=== PATIENT | male | born 1990 | race Caucasian/White ===

== ENCOUNTER 2016-11-02 18:18 | Emergency (ER) | payer MEDICAID ==
[~2016-11-02] VITALS: Ht 172.7 cm; Wt 78.5 kg
[2016-11-02 18:47] VITALS: Ht 172.7 cm; Wt 78.5 kg
[2016-11-02] MEDS ORDERED: CYCL-319 PO (19:16)
[2016-11-02] MEDS ORDERED: IBUP-1542 PO (19:16)
--- NOTE | 2016-11-02 19:22 | ERD ---
ER Documentation Chief Complaint Date/Time DATE: 11/02/16 TIME: 19:17 Chief Complaint bACK PAIN X 7 MONTHS GETTING WORSE HPI Patient is 26-year-old male who presents the emergency department for back pain 7 months. Patient states his pain is getting worse. Patient denies any saddle anesthesia, urinary incontinence, stool incontinence, night pain, difficulty ambulating or loss consciousness. Patient denies any dysuria, hematuria, flank pain, fevers or chills. Patient states that he has been to numerous clinics in the past for his ongoing back pain. Patient denies receiving any x-ray imaging. Patient requesting x-ray imaging at this time. 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 Patient denies any falls or trauma. ROS All systems reviewed and are negative except as per history of present illness. Medications Home Meds Active Scripts Cyclobenzaprine Hcl* (Cyclobenzaprine Hcl*) 10 Mg Tablet, 10 MG PO TID, #15 TAB Prov:STANISLAV HINDS PA-C 11/02/16 Ibuprofen* (Motrin*) 600 Mg Tab, 600 MG PO Q6, #20 TAB Prov:STANISLAV HINDS PA-C 11/02/16 Allergies Allergies: Coded Allergies: No Known Allergy (Unverified , 11/02/16) PMhx/Soc History of Surgery: No Anesthesia Reaction: No Hx Neurological Disorder: No Hx Respiratory Disorders: No Hx Cardiac Disorders: No Hx Psychiatric Problems: No Hx Miscellaneous Medical Probl: Yes (CHRONIC BACK PAIN X 1 YR.) Hx Alcohol Use: No Hx Substance Use: No Hx Tobacco Use: No Smoking Status: Never smoker FmHx Family History: No diabetes Physical Exam Vitals Vital Signs Date Time Temp Pulse Resp B/P Pulse Ox O2 Delivery O2 Flow Rate FiO2 11/02/16 18:47 98.3 73 18 137/78 98 Physical Exam GENERAL: Well-developed, well-nourished male. Appears in no acute distress. Speaking in full sentences HEAD: Normocephalic, atraumatic. EYES: Pupils are equally reactive bilaterally. EOMs grossly intact. No conjunctival erythema. ENT: Moist mucous membranes. No uvula deviation. No kissing tonsils. NECK: Supple. No meningismus. Normal range of motion of the neck. No cervical midline spine tenderness noted. LUNG: Clear to auscultation bilaterally. No rhonchi, wheezing, rales or coarse breath sounds. HEART: Regular rate and rhythm. No murmurs, rubs or gallops. ABDOMEN: Soft, nontender, and nondistended. Positive bowel sounds in all four quadrants. No rebound tenderness, no guarding. (-) McBurney's point tenderness. No CVA tenderness. BACK: No thoracic or lumbar spine tenderness noted. Patient tender to palpation of bilateral lumbar and thoracic muscle regions. Negative straight leg raise bilaterally. EXTREMITIES: Equal pulses bilaterally. No peripheral clubbing, cyanosis or edema. No unilateral leg swelling. NEUROLOGIC: Alert and oriented. Moving all four extremities without any difficulty. Normal speech. Steady gait. SKIN: Normal color. Warm and dry. No rashes or lesions. Results 24 hrs Laboratory Tests Test 11/02/16 20:02 Bedside Urine pH (LAB) 7.0 Bedside Urine Protein (LAB) Negative Bedside Urine Glucose (UA) Negative Bedside Urine Ketones (LAB) Negative Bedside Urine Blood Negative Bedside Urine Nitrite (LAB) Negative Bedside Urine Leukocyte Esterase (L Negative Procedures/MDM ED COURSE: The patient was stable throughout ED course. I kept the patient and/or family informed of laboratory and diagnostic imaging results throughout the ED course. DIAGNOSTIC IMAGING: Read by radiologist. Patient: YISEL PRESLEY : 1990 Age: 26 Sex: M MR #: [id number] DOS: 11/02/161912 Ordering MD: STANISLAV HINDS PA-C Location: [facility] Room/Bed: PROCEDURE: XR Lumbar Spine. CLINICAL INDICATION: Back pain. TECHNIQUE: Complete lumbar spine study including AP, lateral, obliques and coned L5-S1 views was performed. COMPARISON: No similar studies are submitted for comparison. FINDINGS: Vertebral body stature and alignment maintained. There is no evidence of fracture or subluxation. No destructive osseous lesions are seen. IMPRESSION: No evidence of compression fracture. RPTAT: HIKT .Uzair March MD, Date Time Electronically viewed and signed by .Uzair March MD, on 11/02/2016 21:14 .T/ CC: STANISLAV HINDS PA-C DIAGNOSTIC IMAGING REPORT Patient: YISEL PRESLEY : 1990 Age: 26 Sex: M [id number] DOS: 11/02/16 1913 Ordering MD: STANISLAV HINDS PA-C Location: [facility] Room/Bed: PROCEDURE: XR thoracic Spine. CLINICAL INDICATION: Trauma. TECHNIQUE: AP and lateral views of the thoracic spine were performed. COMPARISON: No pertinent prior examinations were submitted for comparison. FINDINGS: There is minimal dextroscoliosis of the thoracic spine. Vertebral body stature and alignment are otherwise maintained. No acute fracture is seen. There are no definite destructive osseous lesions. IMPRESSION: No evidence of compression fracture. RPTAT: HIKT .Uzair March MD, MD Date Time Electronically viewed and signed by .Uzair March MD, MD on 11/02/2016 21:14 .T/ CC: STANISLAV HINDS PA-C MEDICAL DECISION MAKING: This is a 26-year-old male who presents with lower back pain 7 months. Patient states pain is getting worse. Patient denied any trauma or falls. Vital signs were reviewed. Patient was afebrile. Patient denied any saddle anesthesia, urinary incontinence, bowel incontinence, night pain or recent trauma. Urine dip was negative for acute infection or hematuria. X-ray imaging of the thoracic spine was unremarkable. X-ray imaging of the lumbar spine was unremarkable. Given these findings, the patient's presentation is most consistent with musculoskeletal pain. I have a much lower clinical concern for cauda equine syndrome, spinal fractures, epidural abscess, spinal metastases , osteomyelitis, aortic dissection, ruptured or leaking AA, sciatica, pyelonephritis or nephrolithiasis. PRESCRIPTIONS: Ibuprofen Flexeril, patient advised not to take medication when operating any machinery or driving. DISCHARGE: At this time, patient is stable for discharge and outpatient management. RICE therapy and ROM exercises were advised to avoid stiffness. I have instructed the patient to follow-up with his/her primary care physician in 1-2 days. I have discussed with the patient the possibility of needing to see an safety equipment testing specialist for further workup and imaging if the pain persists. I have instructed the patient to promptly return to the ER for any new or worsening symptoms including increased pain, swelling, warmth, urinary incontinence, stool incontinence, weakness or numbness. The patient and/or family expressed understanding of and agreement with this plan. All questions were answered. Home care instructions were provided. Departure Diagnosis: Primary Impression: Back pain Back pain location: low back pain Chronicity: chronic Back pain laterality : unspecified Sciatica presence: unspecified whether sciatica present Qualified Code: M54.5 - Chronic low back pain, unspecified back pain laterality , with sciatica presence unspecified Condition: Stable Patient Instructions: Back Pain (Acute Or Chronic) Referrals: COMMUNITY CLINICS YOU HAVE RECEIVED A MEDICAL SCREENING EXAM AND THE RESULTS INDICATE THAT YOU DO NOT HAVE A CONDITION THAT REQUIRES URGENT TREATMENT IN THE EMERGENCY DEPARTMENT. FURTHER EVALUATION AND TREATMENT OF YOUR CONDITION CAN WAIT UNTIL YOU ARE SEEN IN YOUR DOCTORS OFFICE WITHIN THE NEXT 1-2 DAYS. IT IS YOUR RESPONSIBILITY TO MAKE AN APPOINTMENT FOR FOLOW-UP CARE. IF YOU HAVE A PRIMARY DOCTOR --you should call your primary doctor and schedule an appointment IF YOU DO NOT HAVE A PRIMARY DOCTOR YOU CAN CALL OUR PHYSICIAN REFERRAL HOTLINE AT IF YOU CAN NOT AFFORD TO SEE A PHYSICIAN YOU CAN CHOSE FROM THE FOLLOWING [facility] [address] [facility]. [facility] [address] [facility]. [facility] [address] [facility] [facility] [address] [facility]. [facility] [address] [facility]. [facility]. [address] [facility] YOU HAVE RECEIVED A MEDICAL SCREENING EXAM AND THE RESULTS INDICATE THAT YOU DO NOT HAVE A CONDITION THAT REQUIRES URGENT TREATMENT IN THE EMERGENCY DEPARTMENT. FURTHER EVALUATION AND TREATMENT OF YOUR CONDITION CAN WAIT UNTIL YOU ARE SEEN IN YOUR DOCTORS OFFICE WITHIN THE NEXT 1-2 DAYS. IT IS YOUR RESPONSIBILITY TO MAKE AN APPOINTMENT FOR FOLOW-UP CARE. IF YOU HAVE A PRIMARY DOCTOR --you should call your primary doctor and schedule and appointment IF YOU DO NOT HAVE A PRIMARY DOCTOR YOU CAN CALL OUR PHYSICIAN REFERRAL HOTLINE AT . IF YOU CAN NOT AFFORD TO SEE A PHYSICIAN YOU CAN CHOSE FROM THE FOLLOWING [facility] INSTITUTIONS: [facility] [address] [place] [address] [facility] [address] [place] [address] [facility] [address] [place] [address] [facility] Hours: Mon-Fri 9:00 AM - 5:00 PM Additional Instructions: Call your primary care doctor TOMORROW for an appointment during the next 1-2 days.See the doctor sooner or return here if your condition worsens before your appointment time. You may need MRI on an outpatient basis. See your primary care physician for referral for MRI. STANISLAV HINDS PA-C Nov 02, 2016 19:22
[2016-11-02 19:57] LABS: URINE BLOOD (Dip) POC Negative (NEGATIVE)
--- NOTE | 2016-11-02 21:15 | RADRPT ---
PROCEDURE: XR Lumbar Spine. CLINICAL INDICATION: Back pain. TECHNIQUE: Complete lumbar spine study including AP, lateral, obliques and coned L5-S1 views was p erformed. COMPARISON: No similar studies are submitted for comparison. FINDINGS: Vertebral body stature and alignment maintained. There is no evidence of fracture or subluxation. N o destructive osseous lesions are seen. IMPRESSION: No evidence of compression fracture. RPTAT: HIKT .Uzair March MD, MD Date Time Electronically viewed and signed by .Uzair March MD, on 11/02/2016 21:14 .T/
--- NOTE | 2016-11-02 21:15 | RADRPT ---
PROCEDURE: XR thoracic Spine. CLINICAL INDICATION: Trauma. TECHNIQUE: AP and lateral views of the thoracic spine were performed. COMPARISON: No pertinent prior examinations were submitted for comparison. FINDINGS: There is minimal dextroscoliosis of the thoracic spine. Vertebral body stature and alignment are ot herwise maintained. No acute fracture is seen. There are no definite destructive osseous lesions. IMPRESSION: No evidence of compression fracture. RPTAT: HIKT .Uzair March MD, MD Date Time Electronically viewed and signed by .Uzair March MD, on 11/02/2016 21:14 .T/
[2016-11-15 16:18] LABS: URINE BLOOD (Dip) POC Negative (NEGATIVE)
== END 2016-11-02 21:43 | disposition home or self-care (01) ==
LOC: FTE 18:18
DX: M54.5 Low back pain (principal)
CPT/HCPCS: 72072; 72100; 81003; Z7502